=== PATIENT | female | born 1960 | race African-American/Black ===

== ENCOUNTER 2025-07-04 13:32 | Emergency (ER) | payer OTHER ==
[~2025-07-04] VITALS: Ht 160 cm; Wt 91.6 kg
[2025-07-04 13:47] VITALS: TEMP 98
[2025-07-04 14:06] LABS: PLATELET COUNT (AUTO) 249 K/uL (150-450); RED BLOOD CELL COUNT(AUTO) 4.52 MIL/uL (4.0-5.2); RED CELL DISTRIBUTION WIDTH 14.8 % (11.5-15.0); WHITE BLOOD COUNT (AUTO) 7.2 K/uL (4.3-11.0)
[2025-07-04 14:13] LABS: CALCIUM, SERUM 8.6 mg/dL (8.5-10.1); CREATININE 1.0 mg/dL (0.6-1.3); SODIUM SERUM 139 mmol/L (136-145); UREA NITROGEN, BLOOD 14 mg/dL (7-18)
[2025-07-04] MEDS ORDERED: IBUPROFEN 600 MG TABLET ONE ×2 (14:31→15:13)
[2025-07-04] MEDS ORDERED: POTASSIUM CHLORIDE 20 MEQ POWDER PACKET ONE (15:08)
[2025-07-04] MEDS: IBUPROFEN 600 MG TABLET PO ONE (15:19)
[2025-07-04] MEDS: POTASSIUM CHLORIDE 20 MEQ POWDER PACKET PO ONE (15:20)
[2025-07-04] MEDS ORDERED: oxyCODONE/APAP (5/325 MG) 1 UDTAB TABLET ONE (15:54)
[2025-07-04] MEDS ORDERED: PROPRANOLOL HCL 10 MG TABLET ONE (15:55)
[2025-07-04] MEDS: oxyCODONE/APAP (5/325 MG) 1 UDTAB TABLET PO ONE (15:59)
[2025-07-04] MEDS: PROPRANOLOL LA 60 MG CAP.SA.24H PO SCH (16:45)
[2025-07-04] MEDS ORDERED: KETO10TA2 PO (16:57)
[2025-07-04 17:22] VITALS: BP 140/83; O2SAT 99
== END 2025-07-04 17:23 | disposition home or self-care (01) ==
LOC: ER 13:40
DX: R07.9 Chest pain, unspecified (principal); I10 Essential (primary) hypertension; Z79.899 Other long term (current) drug therapy
CPT/HCPCS: 36415; 71045-TC; 80048-TC; 84484-TC; 85025-TC